=== PATIENT | male | born 1945 | race Two or more races ===

== ENCOUNTER 2024-04-11 10:57 | Inpatient (IN) | payer OTHER ==
[2024-04-11] VITALS (34 sets, daily range): BP systolic 57–116; BP diastolic 17–62; PULSE 84–125; RESP 21–34; TEMP 94.5–100.9; O2SAT 78–100
[~2024-04-11] VITALS: Ht 170.2 cm; Wt 25.0 kg
[2024-04-11] MEDS: DEXTROSE (50%) 50ML SYRG IV ONE (11:05)
[2024-04-11] MEDS: SODIUM CHLORIDE 0.9% 2,350 ML IV ONE (11:15)
[2024-04-11] MEDS: NOREPINEPHRINE 8 MG/250ML KIT 250 ML IV SCH (11:15)
[2024-04-11] MEDS ORDERED: levoFLOXacin 750MG 150 ML IV SCH (11:15)
[2024-04-11] MEDS: ETOMIDATE (2MG/ML) 20ML VIAL IV ONE (11:30)
[2024-04-11] MEDS: MIDAZOLAM DRIP 50 mg/50mL 50 ML IV SCH (11:30)
[2024-04-11] MEDS: NOREPINEPHRINE 8 MG/250ML KIT 250 ML IV ONE (11:31)
--- NOTE | 2024-04-11 11:31 | ED.PDOC ---
Altered Mental Status Chief Complaint: ALOC Comments son came to vist pt and found him on sofa, unresponsive, called 911. BS 40 per EMT. glucagon given without response. last seen normal was 7pm. pt has cirrhosis. no other information available Time Seen by MD: 11:09 Reviewed Notes: Nurses Notes, Medications, Allergies Allergies: Coded Allergies: UNOBTAINABLE (Unverified , 04/11/24) Information Source: Relative (Child), Emergency Med Personnel Mode of Arrival: Ambulatory Severity: Severe Timing: Hours Duration: Since onset History of: Other (cirrhosis) Past Medical History PAST MEDICAL HISTORY: Unobtainable (pt is altered) Past Medical History (Other): cirrhosis Surgical History: Unobtainable Social History Smoker: Unobtainable Drugs: Unobtainable Lives In: Unobtainable All Other Systems: Deferred (pt is altered, in shock) Physical Exam General Appearance: No Apparent Distress, Normal HEENT: Pharynx Normal, TMs Normal, Other (scleral ictus, right pupil 4mm. left 2mm. gaze to right) Neck: Full Range of Motion, Non-Tender, Normal, Normal Inspection Respiratory: Chest Non-Tender, Lungs Clear, No Accessory Muscle Use, No Respiratory Distress, Normal Breath Sounds Cardiovascular: No Edema, No JVD, No Murmur, No Gallop, Normal Peripheral Pulses, Regular Rate/Rhythm Breast Exam: Deferred Gastrointestinal: No Organomegaly, Non Tender, No Pulsatile Mass, Normal Bowel Sounds, Soft, Other (fecal incontinence) Genitalia: Normal Pelvic: Deferred Rectal: Deferred, Other (no skin breakdowns) Extremities: No calf tenderness, Normal capillary refill, Normal inspection, Normal range of motion, Non-tender, No pedal edema Musculoskeletal : Apperance: Normal Neurologic: Aphasia, Other (unresponsive) Cerebellar Function: Unable to Test Reflexes: NOT DONE Skin: Dry, Normal Color, Warm Lymphatic: No Adenopathy Was a procedure done? 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 (resident Valentine CRUZ) Indication: Hypotension, CVP monitoring, Volume resuscitation, Inability to obtain IV, Suspected infection Room prepared for procedure: Yes Buyer Agent performed hand hygien: Yes Maximal sterile barrier precau: Mask/Eye shield, Sterile gown, Cap, Sterlie gloves, Large sterlie drape Skin Preparation: Chlorhexidine gluconate Skin preparation completely dr: Yes Insertion site: Right, Internal jugular Central line catheter type: Epe-telyjdud-qky dialysis Number of lumens: 3 Central line exchanged over a: No Antiseptic ointment applied to: Yes (biopatch) Post Assessment: Chest X-Ray, Proper placement, No Pneumothorax Informed consent obtained: No Risks/benefits/alt described: No UTO Consent emergent condition, altered mentation, no family present Intubation Indication: Respiratory Insufficiency, Altered Mental Status, Airway Protection Prep: Preoxygenation Pretreated with: Sedation Intubation Approach: Orotracheal Intubation size: cm (8) Informed consent obtained: No Risks/benefits/alt described: No UTO Consent emergent condition, altered mentation Notes i supervised the EMT student at beside, using a bougie, successfully intubated on first pass, with direct visualization of VCs and Bougie passing between the cords, then ET slid over the bougie. bougie retracted and removed, CO2 detector with proper color change. bilat equal BS, no epigastric gurgling. O2 saturation in high 90%. no complications. cxr confirmed position Differential Diagnosis (ALOC) Differential Diagnosis: Dehydration, Hypoglycemia, DKA, Encephalopathy, Sepsis, Hypoxemia, CVA, Mass Lesion, SAH, Drug Overdose, ETOH Intoxication, Renal Failure X-Ray, Labs, Meds, VS Vital Signs Date Time Temp Pulse Resp B/P (MAP) Pulse Ox O2 Delivery O2 Flow Rate FiO2 04/11/24 14:19 97 22 82/22 (42) 97 100 04/11/24 14:00 94 22 82/22 (42) 100 04/11/24 12:00 89 04/11/24 12:00 89 18 90/32 (51) 100 04/11/24 11:58 85 20 84/76 (79) 98 100 04/11/24 11:30 57/30 04/11/24 11:22 97.1 86 12 53/38 (43) 94 04/11/24 11:15 57/30 04/11/24 11:00 85 Lab Test 04/11/24 13:58 04/11/24 13:23 04/11/24 13:10 Range/Units POC Glucose 92 70-106 mg/dl Influenza Type A Antigen Negative Negative Influenza Type B Antigen Negative Negative White Blood Count 0.3 *L 4.4-10.8 10^3/uL Red Blood Count 2.68 L 4.5-5.90 10^6/uL Hemoglobin 9.6 L 13.5-17.5 g/dL Hematocrit 28.2 L 41.0-53.0 % Mean Corpuscular Volume 105.3 H 80.0-100.0 fL Mean Corpuscular Hemoglobin 36.0 H 28.0-32.0 pg Mean Corpuscular Hemoglobin Concent 34.2 32.0-36.0 g/dL Red Cell Distribution Width 17.4 H 11.8-14.3 % Platelet Count 18 *L 140-450 10^3/uL Mean Platelet Volume 8.7 6.9-10.8 fL Neutrophils (%) (Auto) 10.3 L 37.0-80.0 % Lymphocytes (%) (Auto) 84.7 H 10.0-50.0 % Monocytes (%) (Auto) 4.1 0.0-12.0 % Eosinophils (%) (Auto) 0.9 0.0-7.0 % Basophils (%) (Auto) 0.0 0.0-2.0 % Neutrophils # (Auto) 0 L 1.6-8.6 10 ^3/uL Lymphocytes # (Auto) 0.3 L 0.4-5.4 10 ^3/uL Monocytes # (Auto) 0 0-1.3 10 ^3/uL Eosinophils # (Auto) 0 0-0.8 10 ^3/uL Basophils # (Auto) 0 0-0.2 10 ^3/uL Nucleated Red Blood Cells 9.4 % Platelet Estimate Markedly decreased Prothrombin Time 22.1 H 9.3-11.8 sec Prothrombin Time INR 2.26 H 0.9-1.15 Activated Partial Thromboplast Time 44.4 H 24.5-34.5 SEC D-Dimer, Quantitative 22.98 H 0.0-0.49 mg/L FEU Sodium Level 143 136-145 mmol/L Potassium Level 2.2 *L 3.5-5.1 mmol/L Chloride Level 99 98-107 mmol/L Carbon Dioxide Level 26 20-31 mmol/L Anion Gap 18 H 5-15 Blood Urea Nitrogen 55 H 9-23 mg/dL Creatinine 1.47 H 0.700-1.30 mg/dL Glomerular Filtration Rate Calc 49 >90 mL/min BUN/Creatinine Ratio 37.4 H 10.0-20.0 Serum Glucose 108 H 74-106 mg/dL Lactic Acid Level 11.8 *H 0.4-2.0 mmol/L Calcium Level 7.8 L 8.7-10.4 mg/dL Total Bilirubin 9.1 H 0.2-1.0 mg/dL Aspartate Amino Transferase (AST) 62 H 13-40 U/L Alanine Aminotransferase (ALT) 29 7-40 U/L Alkaline Phosphatase 76 46-116 U/L Ammonia 71 H 11-32 umol/L Troponin I High Sensitivity 20 </=54 ng/L Total Protein 4.3 L 5.7-8.2 g/dL Albumin 1.8 L 3.2-4.8 g/dL Current Medications Medications (Trade) Dose Ordered Sig/Mickie Route Start Time Stop Time Status Last Admin Sodium Chloride 2,350 ml @ 2,350 mls/hr ONCE ONCE IV 04/11/24 11:15 04/11/24 12:14 DC 04/11/24 11:15 Norepinephrine Bitartrate 250 ml @ 3.75 mls/hr Q24H IV 04/11/24 11:15 04/11/24 11:15 Piperacillin Sod/ Tazobactam Sod 100 ml @ 100 mls/hr ONCE ONCE IV 04/11/24 12:00 04/11/24 12:59 DC 04/11/24 12:00 Etomidate 40 mg ONCE ONCE IV 04/11/24 11:30 04/11/24 11:31 DC 04/11/24 11:30 Midazolam HCl 50 ml @ 1 mls/hr Q24H IV 04/11/24 11:30 04/11/24 11:30 Dextrose 50 ml ONCE ONCE IV 04/11/24 11:05 04/11/24 11:46 DC 04/11/24 11:05 Midazolam HCl (Versed Injection) 5 mg ONCE ONCE IV 04/11/24 12:30 04/11/24 12:31 DC 04/11/24 12:31 Time of 1ST Reevaluation: 12:00 Reevaluation 1ST: Improved Time of 2ND Reevaluation: 13:10 Reevaluation 2ND: Unchanged Time of 3RD Reevaluation: 14:30 Reevaluation 3RD: Unchanged Patient Education/Counseling: Other (critically ill, intubagted, altered) Family Education/Counseling: Diagnosis, Treatment, Prognosis, Need For Follow Up Additional Information pt has cirrhosis, was brought in unresponsive, hypotensive, hypoglycemic, hypothermic. sepsis was suspected and sepsis protocol immediately initiated. due to his lateral gaze and pupil size differential, cva and bleed is also a concern, but he is outside the window for thrombolysis and a head ct is ordered, which did not show bleed or any intracranial process. in addition, he has evidence of hepatic encephalopathy, with end stage liver failure, with pancytopenia, and hepatic synthetic functions failure. i contacted [facility] and spoke to Dr Ruiz and am authorized to admit pt here #[phone]. family showed up and i updated them as well Sepsis Sepsis Reasesment Focused Exam Sepsis focused exam: focus exam completed (i performed ), time: (1400) Departure 1 Departure Time of Disposition: 14:36 Impression: Primary Impression: Encephalopathy Qualified Codes: K76.82 - Hepatic encephalopathy Additional Impressions: Severe sepsis Septic shock Hepatic failure Qualified Codes: K72.91 - Hepatic failure, unspecified with coma Pancytopenia Coagulopathy Hypoglycemia Lactic acidosis Hypokalemia Disposition: ADMITTED INPATIENT Admit to: ICU Condition: Critical Discharged With: Relative Critical Care Note Critical Care Time?: Yes (>90min-critical care time only) Critical care comment: Due to concerns for patients condition deteriorating, the care required my highest level of attention and readiness to intervene. I assessed the patient, reviewed the medical records, ordered the appropriate tests and treatments, then reassessed for results and responsiveness. I communicated with medical personnel and consultants and formulated a plan of care. Total critical care time excludes any procedures Stability Stability form required: KRISTIN Beth MD Apr 11, 2024 11:31
--- NOTE | 2024-04-11 11:47 | DVH ---
EXAM: CT HEAD WITHOUT CONTRAST HISTORY: aloc COMPARISON: None TECHNIQUE: Axial images were obtained and reformatted in coronal and sagittal planes. All CT scans at this medical facility are performed using dose modulation techniques as appropriate t o a performed exam including the following: Automated exposure control was utilized; adjustment of th e MA and/or KV according to patient size; and use of iterative reconstruction technique. CT Dose: CTDI volume is 60 mGy. Dose-length product is 1175 mGy*cm FINDINGS: Supratentorial Region: No evidence for large acute territorial ischemia. No intracranial hemorrhage is noted. Posterior Fossa: No acute abnormality. Brainstem: Unremarkable. Sellar/Suprasellar Region: Unremarkable. Ventricles, Cisterns, Sulci: Age-appropriate. Orbits: Unremarkable. Paranasal Sinuses: Unremarkable. Mastoid Air Cells: Unremarkable. Vasculature: Intracranial arterial calcified plaque formation noted. Bones/Soft Tissues: No acute abnormality. Other: None. IMPRESSION: 1. Suboptimal motion degraded study. 2. No acute intracranial process.
--- NOTE | 2024-04-11 11:47 | DVH ---
EXAM: XY CHEST PORTABLE Indication: aloc Technique: Single frontal view of the chest was obtained Comparison: None FINDINGS: Lines and Tubes: None Lungs: No focal consolidation. Low lung volumes. Pleura: No effusion. No pneumothorax. Cardiomediastinal contours: Unremarkable Bones: No acute osseous abnormality. IMPRESSION: No acute cardiopulmonary disease. Low lung volumes.
[2024-04-11] MEDS: MIDAZOLAM DRIP 50 mg/50mL 50 ML IV ONE (11:49)
[2024-04-11] MEDS: PIPERACILLIN-TAZO 4.5GM 100 ML IV ONE (12:00)
[2024-04-11] MEDS: MIDAZOLAM HCL 5 MG/ML-1ML VIAL IV ONE (12:31)
--- NOTE | 2024-04-11 12:56 | DVH ---
CHEST RADIOGRAPH Indication: Central line placement and NGT placement Technique: Single frontal view of the chest was obtained COMPARISON: XY CHEST PORTABLE on DOS: 04/11/24 FINDINGS: Lines and Tubes: Nasogastric tube is in the body of the stomach. Central line is in the right atrium. Endotracheal tube 3 cm above the keshia. Lungs: Clear Pleura: No effusion. No pneumothorax. Cardiomediastinal contours: Unremarkable Bones: Unremarkable IMPRESSION: 1. No consolidation. Tubes and lines as discussed above.
[2024-04-11 13:24] LABS: Rapid Influenza A Negative (Negative); Rapid Influenza B Negative (Negative)
[2024-04-11 13:35] LABS: Basophils # (auto) 0 10 ^3/uL (0-0.2); Eosinophils # (auto) 0 10 ^3/uL (0-0.8); Hemoglobin 9.6 g/dL (13.5-17.5); Monocytes # (auto) 0 10 ^3/uL (0-1.3); Neutrophils # (auto) 0 10 ^3/uL (1.6-8.6)
[2024-04-11 13:39] LABS: Eosinophils % (auto) 0.9 % (0.0-7.0); Hematocrit 28.2 % (41.0-53.0); Lymphocytes # (auto) 0.3 10 ^3/uL (0.4-5.4); Mean Corpuscular Hgb Conc. 34.2 g/dL (32.0-36.0); Mean Corpuscular Volume 105.3 fL (80.0-100.0); Monocytes % (auto) 4.1 % (0.0-12.0); Neutrophils % (auto) 10.3 % (37.0-80.0); Red Blood Cells 2.68 10^6/uL (4.5-5.90); Red Cell Distribution Width 17.4 % (11.8-14.3)
[2024-04-11 13:41] LABS: Alanine Aminotransferase 29 U/L (7-40); Alkaline Phosphatase 76 U/L (46-116); Anion Gap 18 (5-15); BUN/Creatinine Ratio 37.4 (10.0-20.0); Carbon Dioxide 26 mmol/L (20-31); Chloride 99 mmol/L (98-107); Sodium 143 mmol/L (136-145)
[2024-04-11 13:48] LABS: INR 2.26 (0.9-1.15); Partial Thromboplastin Time 44.4 SEC (24.5-34.5); Prothrombin Time 22.1 sec (9.3-11.8)
[2024-04-11 13:49] LABS: Albumin 1.8 g/dL (3.2-4.8); Aspartate Aminotransferase 62 U/L (13-40); Bilirubin, Total 9.1 mg/dL (0.2-1.0); Blood Urea Nitrogen 55 mg/dL (9-23); Calcium 7.8 mg/dL (8.7-10.4); Glucose 108 mg/dL (74-106); Total Protein 4.3 g/dL (5.7-8.2)
[2024-04-11 13:51] LABS: Lactic Acid w/Reflex 11.8 mmol/L (0.4-2.0); Potassium 2.2 mmol/L (3.5-5.1)
[2024-04-11 14:00] LABS: Lymphocytes % (auto) 84.7 % (10.0-50.0); Nucleated Red Blood Cells % 9.4 %
[2024-04-11] MEDS: POTASSIUM CHL 20MEQ/100ML 100 ML IV ONE (14:00)
[2024-04-11] MEDS: PHENYLEPHRINE IV 250 ML IV ONE ×2 (14:00→20:39)
[2024-04-11 14:03] LABS: Platelet Count (auto) 18 10^3/uL (140-450); White Blood Cell 0.3 10^3/uL (4.4-10.8)
[2024-04-11 14:04] LABS: Platelet Estimate Markedly Decreased
[2024-04-11] MEDS: ALBUMIN 5% 50 ML IV ONE (14:15)
[2024-04-11] MEDS: LACTULOSE 10g/15ml SOLN 473ML PR ONE (14:45)
--- NOTE | 2024-04-11 14:57 | DVHINCON2 ---
Date of service: Apr 11, [address] echols Reason for Consultation vent management History of Present Illness pt is a 78 yo male, h/o liver cirrhosis, decompensated, frequent paracentesis, presented with altered mental status. Pt intubated in the ER. hemodynamically unstable, on 4 pressors. Initial abg 7.46/ Allergies: Coded Allergies: UNOBTAINABLE (Unverified , 04/11/24) Current Medications Current Medications Medications (Trade) Dose Ordered Sig/Mickie Route PRN Reason Start Time Stop Time Status Last Admin Norepinephrine Bitartrate 250 ml @ 3.75 mls/hr Q24H IV 04/11/24 11:15 04/11/24 11:15 Levofloxacin/ Dextrose 150 ml @ 50 mls/hr Q24H IV 04/11/24 11:15 UNV Midazolam HCl 50 ml @ 1 mls/hr Q24H IV 04/11/24 11:30 04/11/24 11:30 Vital Signs Vital Signs Date Time Temp Pulse Resp B/P (MAP) Pulse Ox O2 Delivery O2 Flow Rate FiO2 04/11/24 14:19 97 22 82/22 (42) 97 100 04/11/24 11:22 97.1 Labs/Diagnostic Data Labs Test 04/11/24 13:58 04/11/24 13:23 04/11/24 13:10 Range/Units POC Glucose 92 70-106 mg/dl Influenza Type A Antigen Negative Negative Influenza Type B Antigen Negative Negative White Blood Count 0.3 *L 4.4-10.8 10^3/uL Red Blood Count 2.68 L 4.5-5.90 10^6/uL Hemoglobin 9.6 L 13.5-17.5 g/dL Hematocrit 28.2 L 41.0-53.0 % Mean Corpuscular Volume 105.3 H 80.0-100.0 fL Mean Corpuscular Hemoglobin 36.0 H 28.0-32.0 pg Mean Corpuscular Hemoglobin Concent 34.2 32.0-36.0 g/dL Red Cell Distribution Width 17.4 H 11.8-14.3 % Platelet Count 18 *L 140-450 10^3/uL Mean Platelet Volume 8.7 6.9-10.8 fL Neutrophils (%) (Auto) 10.3 L 37.0-80.0 % Lymphocytes (%) (Auto) 84.7 H 10.0-50.0 % Monocytes (%) (Auto) 4.1 0.0-12.0 % Eosinophils (%) (Auto) 0.9 0.0-7.0 % Basophils (%) (Auto) 0.0 0.0-2.0 % Neutrophils # (Auto) 0 L 1.6-8.6 10 ^3/uL Lymphocytes # (Auto) 0.3 L 0.4-5.4 10 ^3/uL Monocytes # (Auto) 0 0-1.3 10 ^3/uL Eosinophils # (Auto) 0 0-0.8 10 ^3/uL Basophils # (Auto) 0 0-0.2 10 ^3/uL Nucleated Red Blood Cells 9.4 % Platelet Estimate Markedly decreased Prothrombin Time 22.1 H 9.3-11.8 sec Prothrombin Time INR 2.26 H 0.9-1.15 Activated Partial Thromboplast Time 44.4 H 24.5-34.5 SEC D-Dimer, Quantitative 22.98 H 0.0-0.49 mg/L FEU Sodium Level 143 136-145 mmol/L Potassium Level 2.2 *L 3.5-5.1 mmol/L Chloride Level 99 98-107 mmol/L Carbon Dioxide Level 26 20-31 mmol/L Anion Gap 18 H 5-15 Blood Urea Nitrogen 55 H 9-23 mg/dL Creatinine 1.47 H 0.700-1.30 mg/dL Glomerular Filtration Rate Calc 49 >90 mL/min BUN/Creatinine Ratio 37.4 H 10.0-20.0 Serum Glucose 108 H 74-106 mg/dL Lactic Acid Level 11.8 *H 0.4-2.0 mmol/L Calcium Level 7.8 L 8.7-10.4 mg/dL Total Bilirubin 9.1 H 0.2-1.0 mg/dL Aspartate Amino Transferase (AST) 62 H 13-40 U/L Alanine Aminotransferase (ALT) 29 7-40 U/L Alkaline Phosphatase 76 46-116 U/L Ammonia 71 H 11-32 umol/L Troponin I High Sensitivity 20 </=54 ng/L Total Protein 4.3 L 5.7-8.2 g/dL Albumin 1.8 L 3.2-4.8 g/dL Plan/Recommendation altered mental status end stage liver disease RENATA/hepato-renal syndrome septic shock acute hypoxemic resp failure pt seen and examined in the ER labs and imaging st reviewed plan IV bicarb drip pressors armando/levo/dopa/epinephrine/vasopressin broad-spectrum abx obt cx consider paracentesis for sampling prognosis very poor crit care time 35 min BELTRAN TRENT MD Apr 11, 2024 14:57
[2024-04-11] MEDS: NOREPINEPHRINE BITARTRATE 16 MG in SODIUM CHL 0.9% 234 ML IV SCH (15:30)
[2024-04-11] MEDS: PHENYLEPHRINE INJ 40 MG in SODIUM CHL 0.9% 246 ML IV SCH (15:30)
[2024-04-11] MEDS ORDERED: ACETAMINOPHEN 325 MG TAB PO PRN (16:30)
[2024-04-11] MEDS: DOPamine 3200MCG/ML 250 ML IV SCH (16:30)
[2024-04-11] MEDS: EPINEPHrine HCL INJECTION 8 MG in D5W 5% 242 ML IV SCH (16:30)
[2024-04-11] MEDS: VASOPRESSIN 20 UNITS in SODIUM CHL 0.9% 99 ML IV SCH (16:30)
[2024-04-11] MEDS: SODIUM CHLORIDE 0.9% 1,000 ML IV SCH (16:30)
[2024-04-11] MEDS ORDERED: ONDANSETRON HCL 4 MG/2 ML VIAL IV PRN (16:30)
--- NOTE | 2024-04-11 16:41 | DVHHP2 ---
History of Present Illness Reason for Visit: Acute encephalopathy History of Present Illness Luis Meyers is a 78-year-old male with past medical history of liver cirrhosis that was diagnosed 1 month ago at [facility] who presents to the ED by EMS for ALOC. Patient's son had gone to his house around 10:00 a.m. and found the patient on his side on the couch unresponsive, called EMS on site blood sugar was 40, and last known well time was 7:00 p.m. patient's son states that patient was at [facility] month ago and had his 1st paracentesis with continuance at [facility] with a total of 5 paracentesis for the patient's liver cirrhosis. Patient's son also reports that when he was at [facility] he had signed a DNI DNR form. Patient's son states that he does not have that information at this time. Patient's son reports that the patient has multiple diagnoses and takes 4-5 medications but does not know what exactly. Hepatobiliary: Cirrhosis Smoke: 1 pack per day ALCOHOL: heavy Drugs: None Lives: Alone Review of Systems Allergies: Coded Allergies: UNOBTAINABLE (Unverified , 04/11/24) Medications Current Medications Medications Dose Ordered Sig/Mickie Route Start Time Stop Time Status Last Admin Dose Admin Levofloxacin/ Dextrose 150 ml @ 50 mls/hr Q24H IV 04/11/24 11:15 UNV Midazolam HCl 50 ml @ 1 mls/hr Q24H IV 04/11/24 11:30 04/11/24 11:30 5 MLS/HR Phenylephrine HCl 40 mg/Sodium Chloride 250 ml @ 15 mls/hr [id number] IV 04/11/24 15:30 Norepinephrine Bitartrate 16 mg/ Sodium Chloride 250 ml @ 1.875 mls/ hr Q24H IV 04/11/24 15:30 Dopamine HCl/ Dextrose 250 ml @ 6.816 mls/ hr Q24H IV 04/11/24 16:30 UNV Exam Vital Signs Vital Signs Date Time Temp Pulse Resp B/P (MAP) Pulse Ox O2 Delivery O2 Flow Rate FiO2 04/11/24 16:00 62/25 04/11/24 15:30 102 19 100 04/11/24 15:00 94.5 94.5 04/11/24 14:19 100 General Appearance: Other (Intubated and ventilated) Cardiovascular: Normal S1, Normal S2 Labs/Xrays Labs Test 04/11/24 15:15 04/11/24 15:00 04/11/24 13:58 04/11/24 13:23 Range/Units Lactic Acid Level 9.3 *H 0.4-2.0 mmol/L Troponin I High Sensitivity 18 </=54 ng/L POC Glucose 92 70-106 mg/dl Influenza Type A Antigen Negative Negative Influenza Type B Antigen Negative Negative Test 04/11/24 13:10 Range/Units White Blood Count 0.3 *L 4.4-10.8 10^3/uL Red Blood Count 2.68 L 4.5-5.90 10^6/uL Hemoglobin 9.6 L 13.5-17.5 g/dL Hematocrit 28.2 L 41.0-53.0 % Mean Corpuscular Volume 105.3 H 80.0-100.0 fL Mean Corpuscular Hemoglobin 36.0 H 28.0-32.0 pg Mean Corpuscular Hemoglobin Concent 34.2 32.0-36.0 g/dL Red Cell Distribution Width 17.4 H 11.8-14.3 % Platelet Count 18 *L 140-450 10^3/uL Mean Platelet Volume 8.7 6.9-10.8 fL Neutrophils (%) (Auto) 10.3 L 37.0-80.0 % Lymphocytes (%) (Auto) 84.7 H 10.0-50.0 % Monocytes (%) (Auto) 4.1 0.0-12.0 % Eosinophils (%) (Auto) 0.9 0.0-7.0 % Basophils (%) (Auto) 0.0 0.0-2.0 % Neutrophils # (Auto) 0 L 1.6-8.6 10 ^3/uL Lymphocytes # (Auto) 0.3 L 0.4-5.4 10 ^3/uL Monocytes # (Auto) 0 0-1.3 10 ^3/uL Eosinophils # (Auto) 0 0-0.8 10 ^3/uL Basophils # (Auto) 0 0-0.2 10 ^3/uL Nucleated Red Blood Cells 9.4 % Platelet Estimate Markedly decreased Prothrombin Time 22.1 H 9.3-11.8 sec Prothrombin Time INR 2.26 H 0.9-1.15 Activated Partial Thromboplast Time 44.4 H 24.5-34.5 SEC D-Dimer, Quantitative 22.98 H 0.0-0.49 mg/L FEU Sodium Level 143 136-145 mmol/L Potassium Level 2.2 *L 3.5-5.1 mmol/L Chloride Level 99 98-107 mmol/L Carbon Dioxide Level 26 20-31 mmol/L Anion Gap 18 H 5-15 Blood Urea Nitrogen 55 H 9-23 mg/dL Creatinine 1.47 H 0.700-1.30 mg/dL Glomerular Filtration Rate Calc 49 >90 mL/min BUN/Creatinine Ratio 37.4 H 10.0-20.0 Serum Glucose 108 H 74-106 mg/dL Calcium Level 7.8 L 8.7-10.4 mg/dL Total Bilirubin 9.1 H 0.2-1.0 mg/dL Aspartate Amino Transferase (AST) 62 H 13-40 U/L Alanine Aminotransferase (ALT) 29 7-40 U/L Alkaline Phosphatase 76 46-116 U/L Ammonia 71 H 11-32 umol/L Total Protein 4.3 L 5.7-8.2 g/dL Albumin 1.8 L 3.2-4.8 g/dL CHEST RADIOGRAPH Indication: Central line placement and NGT placement Technique: Single frontal view of the chest was obtained COMPARISON: XY CHEST PORTABLE on DOS: 04/11/24 FINDINGS: Lines and Tubes: Nasogastric tube is in the body of the stomach. Central line is in the right atrium. Endotracheal tube 3 cm above the keshia. Lungs: Clear Pleura: No effusion. No pneumothorax. Cardiomediastinal contours: Unremarkable Bones: Unremarkable IMPRESSION: 1. No consolidation. Tubes and lines as discussed above. EXAM: CT HEAD WITHOUT CONTRAST HISTORY: aloc COMPARISON: None TECHNIQUE: Axial images were obtained and reformatted in coronal and sagittal planes. All CT scans at this medical facility are performed using dose modulation techniques as appropriate to a performed exam including the following: Automated exposure control was utilized; adjustment of the MA and/or KV according to patient size; and use of iterative reconstruction technique. CT Dose: CTDI volume is 60 mGy. Dose-length product is 1175 mGy*cm FINDINGS: Supratentorial Region: No evidence for large acute territorial ischemia. No intracranial hemorrhage is noted. Posterior Fossa: No acute abnormality. Brainstem: Unremarkable. Sellar/Suprasellar Region: Unremarkable. Ventricles, Cisterns, Sulci: Age-appropriate. Orbits: Unremarkable. Paranasal Sinuses: Unremarkable. Mastoid Air Cells: Unremarkable. Vasculature: Intracranial arterial calcified plaque formation noted. Bones/Soft Tissues: No acute abnormality. Other: None. IMPRESSION: 1. Suboptimal motion degraded study. 2. No acute intracranial process. EXAM: XY CHEST PORTABLE Indication: aloc Technique: Single frontal view of the chest was obtained Comparison: None FINDINGS: Lines and Tubes: None Lungs: No focal consolidation. Low lung volumes. Pleura: No effusion. No pneumothorax. Cardiomediastinal contours: Unremarkable Bones: No acute osseous abnormality. IMPRESSION: No acute cardiopulmonary disease. Low lung volumes. Assessment/Plan Assessment/Plan Assessment/Plan: Septic shock Acute encephalopathy Acute respiratory failure Coagulopathy Hypoglycemia Lactic acidosis Hypokalemia Pancytopenia Labs Patient intubated on ventilator Urias catheter in ED Ammonia level CT head noted UA D-dimer PT/PTT Flu test COVID Troponin negative x2 EKG Type and screen FFP he has orders ED Platelets ordered in ED ABGs Vasopressors Potassium GTT ordered in ED Sedation IV Lactulose ordered in ED Albumin ordered IV antibiotics-Zosyn +Levaquin changed to vancomycin and meropenem due to unavailability of Levaquin, also due to white count (zosyn dc) NS 2.35 L given ED Respiratory treatments Chest x-ray noted Respiratory culture RBC morphology Gram stain Blood cultures Urine cultures UDS IV steroids Albumin ordered Pulmonary consult Nephro consult History of liver cirrhosis ? Paracentesis FEN/PPX NPO Ivf DVT ppx -held pancytopenia PUD ppx - Protonix Discussed plan of care with nurse and patient's son Unknown medications Admit to ICU Plan discussed with: Son My Orders Orders - ELROY WALKER BASKET PATCHER Procedure Category Date Status Time A-Line Insertion BD 04/11/24 Transmitted 16:20 Dopamine 3200mcg/Ml PHA 04/11/24 Logged 16:30 *[facility] CONS 04/11/24 Transmitted -[place] 16:21 Admit ADMIT 04/11/24 Transmitted 16:21 Allergies YUNG 04/11/24 Transmitted 16:21 Code Status CODE 04/11/24 Transmitted 16:21 0.9% Ns 1000 Ml PHA 04/11/24 Transmitted 16:30 Ondansetron Hcl PHA 04/11/24 Transmitted (Zofran) 16:30 Complete Blood Count LAB 04/12/24 Verified 04:00 Comprehensive LAB 04/12/24 Verified Metabolic Panel 04:00 Npo (Nothing By DIET 04/11/24 Transmitted Mouth) Diet Dinner Acetaminophen Tablet PHA 04/11/24 Transmitted (Tylenol Tablet) 16:30 Date of Service: Apr 11, 2024 Billing Provider: ELROY WALKER Common Visit Codes: [id number] INP/OBS CARE (HIGH) ELROY WALKER Apr 11, 2024 16:41
[2024-04-11] MEDS ORDERED: VANCOMYCIN PER PHARMACY 0 MG IV SCH (17:00)
[2024-04-11] MEDS: HYDROCORTISONE SOD SUCC 100 MG/2ML INJ VIAL IV ONE (18:23)
[2024-04-11] MEDS: VANCOMYCIN 1GM/250ML KIT 250 ML IV ONE (18:23)
[2024-04-11] MEDS: MEROPENEM 500MG IVPB 50 ML IV ONE (18:23)
[2024-04-11] MEDS: VASOPRESSIN 20 UNIT/ML ONE (19:57)
[2024-04-11] MEDS: PHENYLEPHRINE HCL 10 MG/ML VL ONE (20:40)
--- NOTE | 2024-04-11 21:23 | DVHNC2 ---
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) Indication: Hypotension, CVP monitoring, Volume resuscitation, Inability to obtain IV Room prepared for procedure: Yes Is Manager performed hand hygien: Yes Maximal sterile barrier precau: Mask/Eye shield, Sterile gown, Cap, Sterlie gloves, Large sterlie drape Skin Preparation: Chlorhexidine gluconate Skin preparation completely dr: Yes Insertion site: Right, Internal jugular, Line secured Central line catheter type: [id number]-[id number] dialysis Number of lumens: 3 Central line exchanged over a: No Antiseptic ointment applied to: Yes Post Assessment: Chest X-Ray, No Pneumothorax Informed consent obtained: No Risks/benefits/alt described: No UTO Consent Could not obtain informed consent due to emergent procedure. Dr. Camejo supervised me while completing procedure Date of Service: Apr 11, 2024 Billing Provider: JOSE CAMEJO MD Common Visit Codes: PROCEDURE ONLY Procedure Codes: [id number] NON-TUNNEL CV CATH ANGELA GALEANA RESIDENT Apr 11, 2024 21:23
[2024-04-11] MEDS ORDERED: PIPERACILLIN-TAZOB 3.375GM 100 ML IV SCH (22:00)
[2024-04-11] MEDS: HYDROCORTISONE SOD SUCC 100 MG/2ML INJ VIAL IV SCH (23:09)
[2024-04-12] VITALS (40 sets, daily range): BP systolic 0–129; BP diastolic 0–65; PULSE 31–120; RESP 16–33; TEMP 96.3–100.6; O2SAT 0–100
[2024-04-12] MEDS: PHENYLEPHRINE IV 250 ML IV ONE ×2 (02:31→02:35)
[2024-04-12] MEDS: DOPamine 1600MCG/ML D5W 250 ML IV ONE ×2 (02:31→02:32)
[2024-04-12] MEDS: PHENYLEPHRINE HCL 10 MG/ML VL ONE ×2 (02:32→02:36)
[2024-04-12] MEDS: NOREPINEPHRINE BITARTRATE 2 ML IV ONE (02:44)
[2024-04-12] MEDS: NOREPINEPHRINE 8 MG/250ML KIT 250 ML IV ONE (02:44)
[2024-04-12] MEDS: NOREPINEPHRINE BITARTRATE 1 ML IV ONE (02:50)
[2024-04-12] MEDS: DOPamine 1600MCG/ML D5W 250 ML IV SCH (03:00)
[2024-04-12] MEDS: EPINEPHrine HCL 1 MG/1 ML AMP ONE (04:26)
[2024-04-12] MEDS: EPINEPHrine HCL 1 MG/10 ML SYRG ONE (04:26)
[2024-04-12] MEDS: EPINEPHrine HCL 250 ML IV SCH (04:49)
[2024-04-12 05:16] LABS: Alkaline Phosphatase 56 U/L (46-116); Anion Gap 26 (5-15); BUN/Creatinine Ratio 22.1 (10.0-20.0); Chloride 104 mmol/L (98-107); Potassium 3.8 mmol/L (3.5-5.1); Sodium 142 mmol/L (136-145)
[2024-04-12 05:48] LABS: Alanine Aminotransferase 78 U/L (7-40); Albumin 1.8 g/dL (3.2-4.8); Aspartate Aminotransferase 261 U/L (13-40); Bilirubin, Total 6.7 mg/dL (0.2-1.0); Blood Urea Nitrogen 45 mg/dL (9-23); Calcium 7.3 mg/dL (8.7-10.4); Carbon Dioxide 12 mmol/L (20-31); Total Protein 4.1 g/dL (5.7-8.2)
[2024-04-12 06:02] LABS: Glucose 5 mg/dL (74-106)
[2024-04-12] MEDS: DEXTROSE 50% SYRINGE 50 ML IV ONE (06:14)
[2024-04-12] MEDS ORDERED: DEXTROSE 10% 1,000 ML IV SCH (06:15)
[2024-04-12] MEDS: DEXTROSE (50%) 50ML SYRG IV ONE ×5 (06:34→11:21)
[2024-04-12] MEDS: DEXTROSE 10% 1,000 ML IV SCH ×2 (06:45→11:21)
--- NOTE | 2024-04-12 06:56 | ECG ---
[facility] Test Date: 2024-04-11 Test Time: 11:00:05 Pat Name: SERG MARAVILLA Department: er Room: [address] [place] [address] A Gender: M Ribbon Blocker: emerita : 1945 Requested By: KRISTIN TREJO Order Number: [id number] Reading MD: Rangel Green Measurements Intervals [place] Rate: 85 P: 0 SC: 0 QRS: -44 QRSD: 120 T: 118 QT: 467 QTc: 556 Interpretive Statements Accelerated junctional rhythm Nonspecific IVCD with LAD Nonspecific T abnormalities, lateral leads Minimal ST elevation, lateral leads Electronically Signed On 04-13-2024 8:24:32 PST by Rangel Green Please click the below link to view image of tracing.
[2024-04-12] MEDS: ACCU-CHEK COMFORT CURVE STRIP VI SCH (07:00)
[2024-04-12 07:08] LABS: Base Excess -16.8 mmol/L (-2.0-3.0)
[2024-04-12] MEDS: SODIUM BICARB 8.4% 50Meq/50ml SYR Vial IV ONE (09:30)
[2024-04-12] MEDS ORDERED: levoFLOXacin 750MG 150 ML IV SCH (10:00)
[2024-04-12] MEDS: MEROPENEM 500MG IVPB 50 ML IV SCH (10:22)
[2024-04-12] MEDS: SODIUM BICARB 50mEq/50ml Vial 150 ML in D5W 5% 1,000 ML IV ONE (10:23)
--- NOTE | 2024-04-12 11:22 | DVHPN2 ---
Progress Note - Dictate Date Seen: Apr 12, 2024 Medical Necessity Reason Pt with a Central, PICC or Fol: Yes The following are medically ne: Central Line vital signs Vital Sign Date Time Temp Pulse Resp B/P (MAP) Pulse Ox O2 Delivery O2 Flow Rate FiO2 04/12/24 09:58 97 28 129/65 (86) 80 04/12/24 06:45 98.6 98.6 04/12/24 06:00 100 Mechanical Ventilator+ 04/11/24 16:00 0 Total Intake and Output 04/11/24 04/11/24 04/12/24 15:00 23:00 07:00 Intake Total 3663.00 ml 3077.130 ml 884.625 ml Output Total 200 ml Balance 3663.00 ml 3077.130 ml 684.625 ml medications Current Medications Medications Dose Ordered Sig/Mickie Route Start Time Stop Time Status Last Admin Dose Admin Midazolam HCl 50 ml @ 1 mls/hr Q24H IV 04/11/24 11:30 04/11/24 11:30 5 MLS/HR Phenylephrine HCl 40 mg/Sodium Chloride 250 ml @ 15 mls/hr [id number] IV 04/11/24 15:30 04/12/24 04:26 67.5 MLS/HR Norepinephrine Bitartrate 16 mg/ Sodium Chloride 250 ml @ 1.875 mls/ hr Q24H IV 04/11/24 15:30 04/12/24 00:20 28.125 MLS/HR Ondansetron HCl 4 mg Q4HP PRN IV 04/11/24 16:30 Acetaminophen 650 mg Q6HP PRN PO 04/11/24 16:30 Epinephrine HCl 8 mg/Dextrose 250 ml @ 3.75 mls/hr Q24H IV 04/11/24 16:30 04/11/24 16:30 3.75 MLS/HR Vasopressin 20 units/Sodium Chloride 100 ml @ 9 mls/hr [id number] IV 04/11/24 16:30 04/11/24 16:30 9 MLS/HR Hydrocortisone Sodium Succinate 100 mg Q12HR IV 04/11/24 22:00 04/12/24 10:22 100 MG Vancomycin HCl 0 ml @ 0 mls/hr UD IV 04/11/24 17:00 Meropenem 50 ml @ 17 mls/hr Q12HR IV 04/12/24 10:00 04/12/24 10:22 17 MLS/HR Dopamine HCl/ Dextrose 250 ml @ 13.631 mls/ hr [id number] IV 04/12/24 02:45 04/12/24 03:00 54.525 MLS/HR Epinephrine HCl 250 ml @ 7.5 mls/hr Q24H IV 04/12/24 04:45 04/12/24 04:49 37.5 MLS/HR Diagnostic Test (Pha) 1 strip Q1HR 04/12/24 07:00 04/12/24 10:22 1 STRIP Dextrose 1,000 ml @ 100 mls/hr Q10H IV 04/12/24 11:15 laboratory and microbiology Laboratory Tests 04/12/24 04:20 Test 04/12/24 04:20 Range/Units Serum Glucose 5 #*L 74-106 mg/dL Assessment/Plan altered mental status end stage liver disease RENATA/hepato-renal syndrome septic shock acute hypoxemic resp failure pt seen and examined in the ER events pt declining in spite of fluids and abx developed multi-organ failure on 5 pressors abg worsening metabolic acidosis started on bicarb CXR congestions and atelectases management plan IV bicarb drip pressors armando/levo/dopa/epinephrine/vasopressin broad-spectrum abx procedures deferred in view grave prognosis DNR family at bedside updated crit care time 35 min Plan discussed with: Son CC Plasma Assessment Blood Product Administration S: [id number] BELTRAN TRENT MD Apr 12, 2024 11:22
--- NOTE | 2024-04-12 13:23 | DVHDS2 ---
Discharge Summary Date of Admission Apr 11, 2024 at 16:21 Date of Discharge: Apr 12, 2024 Labs/Diagnostic Data: Laboratory Results Test 04/12/24 12:09 04/12/24 09:50 04/12/24 07:00 04/12/24 04:20 POC Glucose 41 mg/dl (70-106) Lactic Acid Level 22.0 mmol/L (0.4-2.0) Blood Gas Specimen Type Arterial Blood Gas Sample Site Right radial Blood Gas Patient Temperature 37.0 Arterial Blood Date Drawn [id number] Arterial Blood pH 7.187 (7.350-7.450) Arterial Blood Partial Pressure CO2 26.7 mmHg (35.0-48.0) Arterial Blood Partial Pressure O2 53.5 mmHg (83.0-108.0) Arterial Blood HCO3 9.9 mmol/L (21.0-28.0) Arterial Blood Oxygen Saturation 78.9 % (94.0-98.0) Arterial Blood Base Excess -16.8 mmol/L (-2.0-3.0) Arterial Blood Oxyhemoglobin 77.6 % (94.0-98.0) Arterial Blood Carboxyhemoglobin 0.6 % (0.5-1.5) Arterial Blood Methemoglobin 1.0 % (0.0-1.5) Noble Test Modified Blood Gas Total Hemoglobin 6.80 g/dL (13.5-17.5) Blood Gas Set Respiration Rate 16.0 Blood Gas Modality Vent - ac FiO2 % 50.0 Blood Gas Tidal Volume 500.0 Blood Gas PEEP or CPAP 5.0 Blood Gas Critical Value Read Back Yes Blood Gas Notified Whom Adjunct Instructor Chemistry norberto walton Blood Gas Notified Time [id number] Blood Gas Notified By Hair Worker miriam Sodium Level 142 mmol/L (136-145) Potassium Level 3.8 mmol/L (3.5-5.1) Chloride Level 104 mmol/L (98-107) Carbon Dioxide Level 12 mmol/L (20-31) Anion Gap 26 (5-15) Blood Urea Nitrogen 45 mg/dL (9-23) Creatinine 2.04 mg/dL (0.700-1.30) Glomerular Filtration Rate Calc 33 mL/min (>90) BUN/Creatinine Ratio 22.1 (10.0-20.0) Serum Glucose 5 mg/dL (74-106) Calcium Level 7.3 mg/dL (8.7-10.4) Total Bilirubin 6.7 mg/dL (0.2-1.0) Aspartate Amino Transferase (AST) 261 U/L (13-40) Alanine Aminotransferase (ALT) 78 U/L (7-40) Alkaline Phosphatase 56 U/L (46-116) Total Protein 4.1 g/dL (5.7-8.2) Albumin 1.8 g/dL (3.2-4.8) Random Vancomycin Level 9.2 ug/mL (5-10) Test 04/11/24 18:45 04/11/24 17:19 04/11/24 13:23 04/11/24 13:10 Blood Gas Spontaneous Rate 29 Troponin I High Sensitivity 30 ng/L (</=54) Influenza Type A Antigen Negative (Negative) Influenza Type B Antigen Negative (Negative) White Blood Count 0.3 10^3/uL (4.4-10.8) Red Blood Count 2.68 10^6/uL (4.5-5.90) Hemoglobin 9.6 g/dL (13.5-17.5) Hematocrit 28.2 % (41.0-53.0) Mean Corpuscular Volume 105.3 fL (80.0-100.0) Mean Corpuscular Hemoglobin 36.0 pg (28.0-32.0) Mean Corpuscular Hemoglobin Concent 34.2 g/dL (32.0-36.0) Red Cell Distribution Width 17.4 % (11.8-14.3) Platelet Count 18 10^3/uL (140-450) Mean Platelet Volume 8.7 fL (6.9-10.8) Neutrophils (%) (Auto) 10.3 % (37.0-80.0) Lymphocytes (%) (Auto) 84.7 % (10.0-50.0) Monocytes (%) (Auto) 4.1 % (0.0-12.0) Eosinophils (%) (Auto) 0.9 % (0.0-7.0) Basophils (%) (Auto) 0.0 % (0.0-2.0) Neutrophils # (Auto) 0 10 ^3/uL (1.6-8.6) Lymphocytes # (Auto) 0.3 10 ^3/uL (0.4-5.4) Monocytes # (Auto) 0 10 ^3/uL (0-1.3) Eosinophils # (Auto) 0 10 ^3/uL (0-0.8) Basophils # (Auto) 0 10 ^3/uL (0-0.2) Nucleated Red Blood Cells 9.4 % Platelet Estimate Markedly decreased Prothrombin Time 22.1 sec (9.3-11.8) Prothrombin Time INR 2.26 (0.9-1.15) Activated Partial Thromboplast Time 44.4 SEC (24.5-34.5) D-Dimer, Quantitative 22.98 mg/L FEU (0.0-0.49) Ammonia 71 umol/L (11-32) Other Laboratory Tests 04/12/24 04:20 04/11/24 13:10 Brief Hx & Hospital Course: Luis Meyers is a 78-year-old male with past medical history of liver cirrhosis that was diagnosed 1 month ago at [facility] who presents to the ED by EMS for ALOC. Patient's son had gone to his house around 10:00 a.m. and found the patient on his side on the couch unresponsive, called EMS on site blood sugar was 40, and last known well time was 7:00 p.m. patient's son states that patient was at [facility] month ago and had his 1st paracentesis with continuance at [facility] with a total of 5 paracentesis for the patient's liver cirrhosis. Patient's son also reports that when he was at [facility] he had signed a DNI DNR form. Patient's son states that he does not have that information at this time. Patient's son reports that the patient has multiple diagnoses and takes 4-5 medications but does not know what exactly. Septic shock Acute encephalopathy Acute respiratory failure Coagulopathy Hypoglycemia Lactic acidosis Hypokalemia Pancytopenia History of liver cirrhosis FAMILY Terminal weaned primary: cardiopulmonary arrest (minutes) secondary: hypoxic resp failure, acute (minutes) tertiary: septic shock (hours) i discussed with family in great detail about pt's status and family decided to do terminal wean Condition at Discharge: Poor Final Diagnosis/Problems List see above Discharge Disposition: at Hospital Discharge Statement: "Patient was advised to return to the ER or call 911 if any headaches, dizziness, shortness of breath, chest pain, abdominal pain, bleeding, fevers, or worsening of medical condition. Patient was counseled about treatment plan, medications, possible side effects, patientverbalized understanding. All questions were answered to the best of my ability. This discharge took greater then 30 minutes in planning, reviewing documentation, counseling the patient, and discussing with other team members." ASSESSMENT ASSESSMENT Assessment Date of Service: Apr 12, 2024 Billing Provider: LUPE NELSON DO Common Visit Codes: [id number]-[id number] CARE 30-74 MIN LUPE NELSON DO Apr 12, 2024 13:23
[2024-04-12] MEDS ORDERED: LORazepam 2MG/ML-1ML VIAL IV PRN (13:30)
[2024-04-12] MEDS: fentaNYL CITRATE 100 MCG/2 ML VL IV PRN (14:04)
[2024-04-12] MEDS: LORazepam 2MG/ML-1ML VIAL IV PRN (14:05)
== END 2024-04-12 14:23 | DRG 871 ==
LOC: ER 10:57 → EDBD 10:57 → OVERFLOW 16:21
PROVIDERS: ADMIT Internal Medicine; ATTEND Internal Medicine
PROC: 02H633Z Insertion of Infusion Device into Right Atrium, Percutaneous Approach (ICD-10-PCS; principal; 2024-04-11)
PROC: 5A1935Z Respiratory Ventilation, Less than 24 Consecutive Hours (ICD-10-PCS; 2024-04-11)
PROC: 0BH17EZ Insertion of Endotracheal Airway into Trachea, Via Natural or Artificial Opening (ICD-10-PCS; 2024-04-11)
PROC: 30233K1 Transfusion of Nonautologous Frozen Plasma into Peripheral Vein, Percutaneous Approach (ICD-10-PCS; 2024-04-11)
PROC: 30233R1 Transfusion of Nonautologous Platelets into Peripheral Vein, Percutaneous Approach (ICD-10-PCS; 2024-04-11)
DX: A41.9 Sepsis, unspecified organism (principal); G93.41 Metabolic encephalopathy; R65.21 Severe sepsis with septic shock; K72.11 Chronic hepatic failure with coma; K76.7 Hepatorenal syndrome; N17.0 Acute kidney failure with tubular necrosis; J96.00 Acute respiratory failure, unspecified whether with hypoxia or hypercapnia; E87.20 Acidosis, unspecified; D68.9 Coagulation defect, unspecified; D61.818 Other pancytopenia; Z66 Do not resuscitate; E87.6 Hypokalemia; K74.60 Unspecified cirrhosis of liver; E16.2 Hypoglycemia, unspecified; F17.210 Nicotine dependence, cigarettes, uncomplicated; Z79.899 Other long term (current) drug therapy; B96.1 Klebsiella pneumoniae [K. pneumoniae] as the cause of diseases classified elsewhere
CPT/HCPCS: 31500; 36415; 36430; 36556; 36600; 70450; 71045; 80053; 80202; 82140; 82805; 82962; 83605; 84484; 85025; 85379; 85610; 85730; 86850; 86900; 86901; 87040; 87070; 87077; 87186; 87205; 87804; 93005; 94002; 94003; 99291; 99292; G0378; J0171; J1265; J2185; J2543; J3480; J7060